=== PATIENT | female | born 1955 | race Caucasian/White ===

== ENCOUNTER 2018-07-07 09:32 | Observation (INO) | payer BC, OTHER ==
[~2018-07-07] VITALS: Ht 167.6 cm; Wt 52.4 kg
[2018-07-07] MEDS ORDERED: SOD CHLORIDE 0.9% 1,000 ML IV STA (09:52)
[2018-07-07] MEDS ORDERED: IOHEXOL 300MG/ML 150 ML BTL ONE (11:09)
[2018-07-07] MEDS ORDERED: SOD CHLORIDE 0.9% 100 ML ONE (11:09)
[2018-07-07] MEDS ORDERED: IOHEXOL 100 ML ONE (11:10)
[2018-07-07] MEDS ORDERED: ATOR40TA68 PO (11:18)
[2018-07-07] MEDS ORDERED: HYDR25TA6 PO (11:18)
[2018-07-07] MEDS ORDERED: CARI350T29 PO (11:18)
[2018-07-07] MEDS ORDERED: LOSA100T15 PO (11:19)
--- NOTE | 2018-07-07 13:26 | ERD ---
ER Documentation Chief Complaint Chief Complaint Pt. MARILYN JONES, feeling lethargic after taking "unprescribed valium" unk amoun HPI This is a 63-year-old female with a history of hypertension and non insulin dependent diabetes mellitus. The patient was brought in by ambulance after her son indicates she became more confused. Indicated this morning he noticed that the patient was using repetitive questions and appeared more lethargic and drowsy. He also noticed that on her nightstand she had a bottle of Valium that was not prescribed to her. She also has muscle relaxants being Soma that she takes for sciatic pain. The patient indicated she was having worsening of her sciatic pain so she took 20 mg of Valium. She does not know what time she took the medications. She denies a headache. She denies any difficulty in jacob thing. She denies any chest pain or pressure. ROS All systems reviewed and are negative except as per history of present illness. Medications Home Meds Reported Medications Losartan Potassium* (Losartan Potassium*) 100 Mg Tablet, 100 MG PO DAILY, TAB 07/07/18 Carisoprodol* (Carisoprodol*) 350 Mg Tablet, 350 MG PO DAILY PRN for MUSCLE SPASMS, TAB 07/07/18 Atorvastatin* (Atorvastatin*) 40 Mg Tablet, 40 MG PO QHS, #30 TAB 07/07/18 Hydrochlorothiazide* (Hydrochlorothiazide*) 25 Mg Tab, 25 MG PO DAILY, #30 TAB 07/07/18 Allergies Allergies: Coded Allergies: Penicillins (Verified Allergy, Unknown, 07/07/18) PMhx/Soc History of Surgery: Yes (neck) Anesthesia Reaction: No Hx Neurological Disorder: Yes (muscle atrophy) Hx Respiratory Disorders: No Hx Cardiac Disorders: No Hx Psychiatric Problems: No Hx Miscellaneous Medical Probl: Yes (DM) Hx Alcohol Use: Yes Hx Substance Use: Yes (marijuana) Smoking Status: Never smoker Physical Exam Vitals Vital Signs Date Temp Pulse Resp B/P (MAP) Pulse Ox O2 O2 Flow FiO2 Time Delivery Rate 07/07/18 96 16 114/76 96 Mask 6.0 13:02 (89) 07/07/18 88 16 128/84 98 Nasal 4.0 10:57 (99) Cannula 07/07/18 97.8 107 14 135/79 88 09:45 (97) Physical Exam Constitutional:Well-developed. Well-nourished. HEENT:Normocephalic. Atraumatic.Pupils were 3 mm equal round reactive to light. Very dry mucous membranes.No tonsillar exudates. Neck: No nuchal rigidity. No lymphadenopathy. No posterior cervical spine tenderness or step-offs. Respiratory: Not using accessory muscles of respiration.Lungs were clear to auscultation bilaterally. No rhonchi. No rales. No wheezing. Cardiovascular: Tachycardic with regular rhythm.No murmurs. No rubs were appreciated.S1, S2 normal. Distal pulses are palpable 2+ bilaterally. GI: Abdomen was soft. Nontender. Non Distended. No pulsatile abdominal masses or bruits. No rebound. No guarding. Bowel sounds were present and normal. Muscle skeletal: Full range of motion of both the upper and lower extremities bilaterally.Normal muscle tone.No assymetrical calf tenderness or swelling. Skin: No petechia, no purpura. No lesions on the palms or the soles of the feet. No maculopapular rash. NEURO: Patient was alert, awake, orientated to person place but not to time. Patient had slurred speech. No facial droop. Gait not observed as patient was too drowsy to ambulate. Patient withdrew to pain. Patient opened eyes in response to pain. Result Diagram: 07/07/18 1022 07/07/18 1022 Results 24 hrs Laboratory Tests Test 07/07/18 10:22 07/07/18 11:15 07/07/18 13:15 White Blood Count 8.8 10^3/ul Red Blood Count 5.65 10^6/ul Hemoglobin 18.3 g/dl Hematocrit 52.9 % Mean Corpuscular Volume 93.6 fl Mean Corpuscular 32.4 pg Hemoglobin Mean Corpuscular 34.6 g/dl Hemoglobin Concent Red Cell Distribution 12.5 % Width Platelet Count 253 10^3/UL Mean Platelet Volume 10.2 fl Immature Granulocytes % 0.300 % Neutrophils % 66.9 % Lymphocytes % 22.0 % Monocytes % 9.2 % Eosinophils % 1.1 % Basophils % 0.5 % Nucleated Red Blood Cells 0.0 /100WBC % Immature Granulocytes # 0.030 10^3/ul Neutrophils # 5.9 10^3/ul Lymphocytes # 1.9 10^3/ul Monocytes # 0.8 10^3/ul Eosinophils # 0.1 10^3/ul Basophils # 0.0 10^3/ul Nucleated Red Blood Cells 0.0 10^3/ul # Prothrombin Time 12.6 Sec Prothrombin Time Ratio 1.0 INR International 0.93 Normalized Ratio Activated 28.8 Sec Partial Thromboplast Time Sodium Level 139 mmol/L Potassium Level 3.2 mmol/L Chloride Level 99 mmol/L Carbon Dioxide Level 33 mmol/L Anion Gap 7 Blood Urea Nitrogen 31 mg/dl Creatinine 0.39 mg/dl Est Glomerular Filtrat > 60 mL/min Rate mL/min Glucose Level 143 mg/dl Calcium Level 10.0 mg/dl Total Bilirubin 0.9 mg/dl Direct Bilirubin 0.00 mg/dl Indirect Bilirubin 0.9 mg/dl Aspartate Amino 32 IU/L Transf (AST/SGOT) Alanine 27 IU/L Aminotransferase (ALT/SGP T) Alkaline Phosphatase 93 IU/L Creatine Kinase 82 IU/L Creatine Kinase Index 9.5 Creatinine Kinase MB 7.76 ng/ml (Mass) Troponin I 0.036 ng/ml Total Protein 7.6 g/dl Albumin 4.1 g/dl Globulin 3.50 g/dl Albumin/Globulin Ratio 1.17 Salicylates Level < 1.0 mg/dl Acetaminophen Level < 10.0 ug/ml Ethyl Alcohol Level < 10.0 mg/dl Urine Color YELLOW Urine Clarity SLIGHTLY CLOUDY Urine pH 6.0 Urine Specific [place] 1.024 Urine Ketones 1+ mg/dL Urine Nitrite NEGATIVE mg/dL Urine Bilirubin NEGATIVE mg/dL Urine Urobilinogen 1+ mg/dL Urine Leukocyte Esterase TRACE Claudia/ul Urine Microscopic RBC 2 /HPF Urine Microscopic WBC 6 /HPF Urine Squamous FEW /HPF Epithelial Cells Urine Mucus FEW /HPF Urine Hemoglobin 1+ mg/dL Urine Glucose NEGATIVE mg/dL Urine Total Protein NEGATIVE mg/dl Urine Opiates Screen Positive Urine Barbiturates Negative Urine Amphetamines Screen Negative Urine Benzodiazepines Positive Screen Urine Cocaine Screen Negative Urine Cannabinoids Positive Blood Gas Specimen Source Blood arterial Arterial Blood Date 07/07/2018 1:20:45 PM Drawn Arterial Blood pH 7.467 (Temp corrected) Arterial Blood pCO2 47.3 mmhg (Temp correct) Arterial Blood pO2 86.2 mmHG (Temp corrected) Arterial Blood HCO3 33.4 mmol/L Arterial Blood Base 8.2 mmol/L Excess Arterial Blood 96.7 mmHG Oxygen Saturation [place] Test ACCEPTAB Arterial Blood Gas Right Radial Puncture Site Arterial 0.6 % Blood Carboxyhemoglobin Arterial Blood 0.1 % Methemoglobin Blood Gas A-a O2 159.1 mmHg Differential Oxyhemoglobin Percent 96.0 % Blood Gas Temperature 37.0 C Blood Gas Modality MASK - SIMPLE FiO2 42.0 % Blood Gas Notified Whom RT Blood Gas Notified Time 07/07/2018 1:29:15 PM Current Medications Medications Dose Sig/Barbie Start Time Status Last (Trade) Ordered Route PRN Stop Time Admin Dose Reason Admin Sodium 1,000 ml @ Q1H STAT 07/07/18 DC 07/07/18 Chloride 1,000 mls/hr IV 09:52 10:28 07/07/18 10:51 IV Flush 10 ml STK-MED 07/07/18 DC 07/07/18 (NS 10 ml) ONCE .ROUTE 11:09 11:36 07/07/18 11:10 Sodium 100 ml @ ud STK-MED 07/07/18 DC 07/07/18 Chloride ONCE .ROUTE 11:09 11:36 07/07/18 11:10 Iohexol 150 ml STK-MED 07/07/18 DC (Omnipaque ONCE .ROUTE 11:09 300mg/ ml) 07/07/18 11:10 Iohexol 100 ml @ ud STK-MED 07/07/18 DC 07/07/18 ONCE .ROUTE 11:10 11:36 07/07/18 11:11 Potassium 10 meq ONCE ONCE 07/07/18 DC Chloride PO 13:30 (Klor-Con 10) 07/07/18 13:31 Procedures/MDM The patient presented to the emergency department with an acute and persistent change in their mental status. The differential diagnosis is diverse however reversible causes such as hypoglycemia, opiate overdose, thiamine deficiency were immediately considered. The patient was placed on a flying shear operator, co ntinuous pulse oximetry and IV access was established. The patients airway was secure however hypoxic events such as anemia, shock, or severe pulmonary disease were all considered as etiologies in this patients presentation. Circulation assessed with good cap refill and did not require fluids or pressure support. Finger stick for rapid glucose determined to be normal at 143. 12 Lead EKG tracing ordered and reviewed by myself showed: Sinus tachycardia 107 bpm and no arrhythmia. TN interval normal. QRS duration normal. No ST segment elevation No ST segment depression. No changes consistent with acute ischemia. I obtained a CT scan of the head reviewed by myself the radiologist and indicate d the followin. No acute intracranial hemorrhage or acute territorial infarct. 2. Age related atrophy and minimal small vessel ischemic change I obtained a 1 view chest radiograph as the patient was hypoxic. She was satting at roughly 91%. She was placed on high flow supplemental oxygen with a nonrebreather. Chest radiograph reviewed by the radiologist indicate the following: Widening of the superior mediastinum which appears lobulated in contour. The mediastinal mass cannot be excluded. Follow-up CT chest with contrast is recommended. Calcified aorta consistent with atherosclerotic disease. I obtained an arterial blood gas that did not show severe respiratory acidosis and again the patient was maintaining her airway on high flow supplemental oxygen. PH was 7.467. PCO2 was 47.3. PO2 was 86.2. Bicarb was 33.4. CT scan of the chest was ordered and reviewed by myself and the radiologist which indicated the following: Scattered clusters of branching centrilobular micronodules in the left lower lobe may represent infectious or inflammatory bronchiolitis. Heterogeneous thyroid gland with a possible 1.6 cm left thyroid nodule. If clinically indicated, this may be further evaluated with dedicated thyroid ultrasound exam. Indeterminate heterogeneous 2.8 cm left adrenal nodule. Recommend biochemical lab evaluation for pheochromocytoma. If lab values are normal, then consider adrenal CT or MRI for further evaluation. Mild atherosclerotic calcifications of the aorta and coronary arteries. No evidence of thoracic aortic aneurysm or dissection. The patient no severe electrolyte abnormalities other than mild hypokalemia with potassium 3.2. She was supplemented with oral potassium The patient had findings of a left adrenal nodule and the radiologist indicated for biochemical lab evaluation for pheochromocytoma. Therefore metanephrines being the catecholamine metabolites that a pheochromocytoma can produce will be ordered for the serum and urine. Urinalysis did not show any evidence of an infectious process such as urinary tract infection. Observation Note: Time: 4 hours Family Hx: No Hypertension Evaluation: Multiple exams showed mild improvement of the patient's symptoms however she continued to require low flow supplemental oxygen, maintaining her airway, but I did feel she required admission for observation. She will be admitted under the care of Dr. Villeda and I did feel required telemetry to continue to monitor for hypoxia. The patient indicated this was not an intentional overdose in her urine drug screen was positive for both opiates and benzodiazepines. Departure Diagnosis: Primary Impression: Overdose Encounter type: initial encounter Injury intent: accidental or unintentional Qualified Codes: T50.901A - Poisoning by unspecified drugs, medicaments and biological substances, accidental (unintentional), initial encounter Additional Impressions: Dehydration Hypokalemia Condition: Serious SANTOSH SANCHEZ MD Jul 07, 2018 13:22
[2018-07-07] MEDS ORDERED: POTASSIUM CHLORIDE (SR) 10 MEQ TAB PO ONE (13:30)
[2018-07-07] MEDS ORDERED: ONDANSETRON 4 MG INJ IV PRN (14:00)
[2018-07-07] MEDS ORDERED: ACETAMINOPHEN 325 MG TAB PO PRN (14:00)
--- NOTE | 2018-07-07 18:04 | HP ---
DATE OF ADMISSION: 07/07/2018 CHIEF COMPLAINT: Altered mental status. HISTORY OF PRESENT ILLNESS: A 63-year-old female with hypertension, type 2 diabetes mellitus and sci atica who was brought in by her son with altered mental status. He noticed the patient was confused and making repetitive statements. She was more lethargic than usual. Her son found a bottle of Soto um at bedside. This medication was not prescribed to her and she apparently got it from her friend. The patient took 20 mg of Valium. Initial evaluation in the emergency room found the patient to be lethargic but responsive. There was no fever or chills. No abdominal pain. No chest pain or shortn ess of breath. No focal weakness. PAST MEDICAL HISTORY: 1. Hypertension. 2. Type 2 diabetes mellitus. 3. Sciatica. SOCIAL HISTORY: The patient has a history of marijuana use. PHYSICAL EXAMINATION: GENERAL: Well-developed, well-nourished female who is lethargic but responsive. VITAL SIGNS: Stable. She is afebrile. HEENT: Extraocular muscles are intact. Pupils are equal and reactive to light bilaterally. Sclerae anicteric. Oropharynx is clear and moist. NECK: Supple. No JVD. No carotid bruit. LUNGS: Clear to auscultation bilaterally. CARDIAC: Regular rate and rhythm. No murmurs or gallops. ABDOMEN: Soft, nontender and nondistended. Normoactive bowel sounds. EXTREMITIES: No clubbing, cyanosis or edema. NEUROLOGICAL: Mild to moderate lethargic. The patient moves all extremities. ASSESSMENT: 1. A 63-year-old female with unintentional benzodiazepine overdose. 2. Hypertension. 3. Type 2 diabetes mellitus. 4. Sciatica. PLAN: Place in tele observation. Avoid narcotics and sedatives. Dictated By: BRANDON LEUNG/COLUMBA Conf#: [id number] DID#: [id number]
[2018-07-07 23:36] VITALS: PULSE 94
[2018-07-07 23:45] VITALS: BP 109/55; PULSE 98; RESP 18
[2018-07-08] VITALS (9 sets, daily range): BP systolic 110–127; BP diastolic 56–75; PULSE 85–98; RESP 18–19; Ht 167.6 cm; Wt 52.4 kg
[2018-07-08] MEDS ORDERED: ONDANSETRON 4 MG INJ IV PRN (01:00)
[2018-07-08] MEDS ORDERED: ACETAMINOPHEN 325 MG TAB PO PRN (01:00)
[2018-07-08] MEDS: POTASSIUM CHLORIDE 40 MEQ in SOD CHLORIDE 0.9% 1,000 ML IV SCH ×2 (02:52→14:51)
[2018-07-08] MEDS: ACCU-CHEK XX SCH ×3 (07:00→17:38)
[2018-07-08] MEDS ORDERED: LOSARTAN 50 MG TAB PO SCH (09:00)
[2018-07-08] MEDS ORDERED: ATORVASTATIN 40 MG TAB PO SCH (21:00)
--- NOTE | 2018-07-09 05:59 | DS ---
DATE OF ADMISSION: 07/07/2018 DATE OF DISCHARGE: 07/08/2018 DISCHARGE DIAGNOSES: 1. A 63-year-old female with unintentional benzodiazepine overdose. 2. Sciatica. 3. Hypertension. 4. Hyperlipidemia. 5. Type 2 diabetes mellitus, diet controlled. HOSPITAL COURSE: A 63-year-old female who presented to emergency room with altered mental status and lethargy. The patient had taken 20 mg of Valium given for by a friend. She had sciatica and diffic ulty ambulating. Her mental status improved during the hospitalization. Her mental status improved during the hospitalization. I recommended [facility] facility for physical therapy. The patien t will be evaluated by physical therapy prior to discharge. MEDICATIONS ON DISCHARGE: Include the followin. Lipitor 40 mg p.o. at bedtime. 2. Hydrochlorothiazide 25 mg daily. 3. Losartan 100 mg daily 4. Discontinue carisoprodol. FOLLOWUP: Follow up with PCP in 1 week. Dictated By: BRNADON LEUNG/COLUMBA Conf#: [id number] DID#: [id number]
== END 2018-07-08 18:59 ==
LOC: EDBD 09:32 → E/R 09:32 → 6WM 13:52
PROVIDERS: ADMIT Internal Medicine; ATTEND Internal Medicine
DX: T42.4X1A Poisoning by benzodiazepines, accidental (unintentional), initial encounter (principal); R41.82 Altered mental status, unspecified; Y92.003 Bedroom of unspecified non-institutional (private) residence as the place of occurrence of the external cause; E11.9 Type 2 diabetes mellitus without complications; I10 Essential (primary) hypertension; M54.30 Sciatica, unspecified side; E78.5 Hyperlipidemia, unspecified
CPT/HCPCS: 36600; 70450; 71045; 71260; 80053; 80061; 80307; 81001; 82550; 82553; 82803; 82962; 83036; 84484; 85025; 85610; 85730; 92610; 93005; 97162; 99285; G0378; J3480; J7030; Q9967